=== PATIENT | male | born 1995 | race Two or more races ===

== ENCOUNTER → 2019-03-16 | Outpatient (CLI) | payer OTHER ==
--- NOTE | 2019-03-17 07:31 | REP ---
REASON FOR EXAM: History of cough and bronchitis. COMPARISON: None. There is a patchy opacity in the anterior segment of the left lower lobe consistent with pneumonia. The pleural angles are sharp and the heart is not enlarged. The osseous structures are within normal limits. IMPRESSION: Left lower lobe pneumonia. Electronically Signed by Juan Zarate DO 03/17/2019 04:30 P
== END ==
LOC: M LRY 18:26
PROVIDERS: ATTEND Nurse Practitioner Family
DX: J18.9 Pneumonia, unspecified organism (principal)
CPT/HCPCS: 71046; 87804; 87880; 94640; G0463